=== PATIENT | female | born 1950 | race Caucasian/White ===

== ENCOUNTER 2021-07-27 11:53 | Day surgery (SDC) | payer MEDICARE ==
[~2021-07-27] VITALS: Ht 160 cm; Wt 61.7 kg
[2021-07-27] VITALS (9 sets, daily range): BP systolic 104–172; BP diastolic 62–92; PULSE 96–109; TEMP 98.2
[2021-07-27 12:47] LABS: HEMATOCRIT 38.4 % (37.0-47.0); HEMOGLOBIN 13.1 g/dl (12.5-16.0); MEAN CELL VOLUME 89 fl (80.0-100.0); MEAN CORPUSCULAR HEMOGLOBIN 30 pg (27-31); MEAN CORPUSCULAR HGB CONC 34 g/dl (33.0-37.0); MEAN PLATELET VOLUME 10.6 fl (7.4-10.4); PLATELET COUNT 122 K/mm3 (130-400); RED BLOOD COUNT 4.33 M/mm3 (4.10-5.30); REDCELL DISTRIBUTION WIDTH-CV 11.9 % (11.5-14.5)
[2021-07-27 12:50] LABS: INR 1.1 (0.8-3.0); PROTHROMBIN TIME 12.2 SECONDS (9.7-12.8)
[2021-07-27 12:53] LABS: PARTIAL THROMBOPLASTIN TIME 28.2 SECONDS (26.0-37.0)
[2021-07-27 12:55] LABS: CALCIUM 9.1 mg/dL (8.4-10.2); CREATININE, serum 1.25 mg/dL (0.57-1.11); POTASSIUM 4.7 mmol/L (3.5-4.5)
[2021-07-27] MEDS ORDERED: PROGRAF 1MG1 MG PO (13:55)
[2021-07-27] MEDS ORDERED: PREDNISONE 5MG5 MG PO (13:55)
[2021-07-27] MEDS ORDERED: AMITRIPTYLINE H10 M1 PO (13:56)
[2021-07-27] MEDS ORDERED: MIRAPEX ER1.5 MG PO (13:57)
[2021-07-27] MEDS ORDERED: MINIPRESS 1M1 MG/CAP PO (13:59)
[2021-07-27] MEDS ORDERED: MAG-OX 400400 MG/TAB PO (14:00)
[2021-07-27] MEDS ORDERED: FERROUS SU325 MG/TAB PO (14:00)
[2021-07-27] MEDS ORDERED: SYNTHROID0.2 MG/TAB PO (14:01)
[2021-07-27] MEDS ORDERED: FIORICET 325 MG1 TA1 PO (14:02)
[2021-07-27] MEDS ORDERED: PERCOCET 325 MG1 TA2 PO (14:03)
[2021-07-27] MEDS ORDERED: ZOFRAN 4MG T4 MG/TAB PO (14:04)
[2021-07-27] MEDS ORDERED: ASPIRIN E.C. 8181 MG PO (14:04)
[2021-07-27] MEDS ORDERED: VTAMINC250TA PO (14:05)
[2021-07-27] MEDS ORDERED: VITAMIND3 5000 PO (14:06)
[2021-07-27] MEDS ORDERED: CALCIUM-MAGNES1 EAC1 PO (14:06)
--- NOTE | 2021-07-27 14:06 | NUR ---
SEE MERGE FOR ALL MEDICATION ADMINISTRATION TIMES/DOSAGES AND INTRA/POST PROCEDURE SEDATION ASSESSMENTS.
[2021-07-27] MEDS ORDERED: LUTEIN 15 MG-0.1 SGL PO (14:07)
[2021-07-27] MEDS ORDERED: FLONASEALLERGY NS (14:08)
[2021-07-27] MEDS ORDERED: PROBIOTIC ACID1 EAC3 PO (14:08)
--- NOTE | 2021-07-27 17:33 | NUR ---
Pt came back to express unit at 1435. Pt did well during her recovery. Pt remained in SR/ST on monitor around 100 bpm throughout recovery, she ate a meal with no problem. She has been up and ambulatory with steady gait to bathroom. TR band has been deflated with no problem. Site dressed with bandaid, folded 2x2 and coban. cms remains intact distal. I have reviewed dc and fu instructions with pt who verbalized understanding. IV dc'd with cath intact. Pt refused wheelchair. I ambulated with pt to exit and with to her vehicle. gait steady.
== END 2021-07-27 17:38 | disposition home or self-care (01) ==
LOC: COL.CAR 11:53
PROVIDERS: Internal Medicine Cardiovascular Disease
DX: I25.10 Atherosclerotic heart disease of native coronary artery without angina pectoris (principal); I10 Essential (primary) hypertension; I35.0 Nonrheumatic aortic (valve) stenosis
CPT/HCPCS: C1769; J1644; J2250; J3010; J7030; Q9967

== ENCOUNTER 2021-10-21 08:41 | Outpatient (CLI) | payer MEDICARE ==
[~2021-10-21] VITALS: Ht 160.1 cm; Wt 61.3 kg
[~2021-10-21 08:41] MED LIST: AMITRIPTYLINE H10 M1 PO; ASPIRIN E.C. 8181 MG PO; CALCIUM-MAGNES1 EAC1 PO; FERROUS SU325 MG/TAB PO; FIORICET 325 MG1 TA1 PO; FLONASEALLERGY NS; LUTEIN 15 MG-0.1 SGL PO; MAG-OX 400400 MG/TAB PO; MINIPRESS 1M1 MG/CAP PO; MIRAPEX ER1.5 MG PO; PERCOCET 325 MG1 TA2 PO; PREDNISONE 5MG5 MG PO; PROBIOTIC ACID1 EAC3 PO; PROGRAF 1MG1 MG PO; SYNTHROID0.2 MG/TAB PO; VITAMIND3 5000 PO; VTAMINC250TA PO; ZOFRAN 4MG T4 MG/TAB PO
[2021-10-21] MEDS ORDERED: TOPROL XL 25MG25 MG PO (09:40)
[2021-10-21] MEDS ORDERED: PRILOSEC 20MG20 MG PO (09:41)
[2021-10-21 09:44] VITALS: BP 139/74; PULSE 85; TEMP 97.7
[2021-10-21 10:09] LABS: HEMOGLOBIN 12.4 g/dl (12.5-16.0); MEAN CELL VOLUME 89 fl (80.0-100.0); MEAN CORPUSCULAR HEMOGLOBIN 31 pg (27-31); MEAN CORPUSCULAR HGB CONC 34 g/dl (33.0-37.0); MEAN PLATELET VOLUME 10.4 fl (7.4-10.4); PLATELET COUNT 126 K/mm3 (130-400); RED BLOOD COUNT 4.07 M/mm3 (4.10-5.30); REDCELL DISTRIBUTION WIDTH-CV 11.3 % (11.5-14.5)
[2021-10-21 10:10] LABS: HEMATOCRIT 36.1 % (37.0-47.0); INR 1.1 (0.8-3.0); PROTHROMBIN TIME 12.8 SECONDS (9.7-12.8)
[2021-10-21 10:16] LABS: CALCIUM 9.5 mg/dL (8.4-10.2); CREATININE, serum 1.51 mg/dL (0.57-1.11); POTASSIUM 4.2 mmol/L (3.5-4.5)
[2021-10-21 11:00] VITALS: BP 120/58; PULSE 83
[2021-10-21 11:15] VITALS: BP 125/54; PULSE 76
[2021-10-21 11:30] VITALS: BP 132/57; PULSE 78
--- NOTE | 2021-10-21 12:15 | NUR ---
Discharge instructions given to pt.Pt verbalizes understanding.Pt escorted out via wheelchair by this nurse.
== END 2021-10-21 12:48 ==
LOC: COL.RAD 08:41
PROVIDERS: Internal Medicine Cardiovascular Disease
DX: I08.0 Rheumatic disorders of both mitral and aortic valves (principal)
CPT/HCPCS: J2704; J3010